=== PATIENT | male | born 2000 | race Two or more races ===

== ENCOUNTER → 2021-07-04 | Day surgery (SDC) | payer MEDICAID ==
[~2021-07-04] VITALS: Ht 172.7 cm; Wt 59.0 kg
[~2021-07-04] MED LIST: ACETAMINOPHEN 500MG TABLET ONE; ACETAMINOPHEN 650MG SUPP PR PRN; BUPIVACAINE HCL 0.5% (5MG/ML) 50ML ONE; CEFTRIAXONE 1 G PREMIX 50 ML IV ONE; DEXAMETHASONE 4MG/ML 1ML VIAL ONE; DEXT 5%/0.45% NACL 1000ML 1,000 ML IV SCH; GLYCOPYRROLATE 0.2 MG/ML 2ML VIAL ONE; HYDROMORPHONE HCL/PF 2MG/ML (OR) ONE; HYDROMORPHONE HCL/PF 2MG/ML CPJ IV PRN; IOHEXOL-300 100 ML BOTTLE ONE; IOHEXOL-350 100 ML BOTTLE ONE; KETOROLAC 30MG/ML VIAL ONE; LABETALOL 5MG/ML SYR 20 MG/4 ML SYRINGE IV PRN; MEPERIDINE HCL/PF 25MG/ML CPJ IV PRN; METRONIDAZOLE 500 MG PREMIX 100 ML IV ONE; MORPHINE SULFATE 2 MG/ML CPJ (NOT FOR IM USE) IV ONE; MORPHINE SULFATE 4 MG/ML CPJ (NOT FOR IM USE) IV ONE; NALOXONE HCL 0.4MG/ML VIAL IV PRN; NEOSTIGMINE METHYLSULFATE 1MG/ML 10 ML VIAL ONE; ONDANSETRON HCL 4MG/2ML INJ IV ONE; ONDANSETRON HCL 4MG/2ML INJ IV PRN; ONDANSETRON HCL 4MG/2ML INJ IV STA; PIPERACILLIN/TAZOBACTAM 3.375 G in DEXTROSE 5% WATER 50 ML IV SCH; POTASSIUM CHLORIDE 20MEQ TABLET SR PO ONE; PROPOFOL 200MG/20ML VIAL IV ONE; ROCURONIUM BROMIDE 10MG/ML VIAL 5ML IV ONE; SKIN ADHESIVE 0.7 GM EA TOP ONE; SODIUM CHLORIDE 0.9% 1,000 ML IV ONE
[2021-07-04 04:18] LABS: HEMATOCRIT. 45.2 % (42.0-52.0); HEMOGLOBIN. 15.8 g/dL (14.0-18.0); MEAN CORPUSCULAR HEMOGLOBIN 32.2 pg (28.0-32.0); MEAN CORPUSCULAR VOLUME 91.7 fL (80.0-94.0); PLATELET 210 x1000/uL (130-400); RED BLOOD CELL COUNT 4.92 mill/uL (4.7-6.1)
[2021-07-04 04:25] LABS: CHLORIDE 105 mEq/L (98-107)
[2021-07-04 04:29] LABS: ETHANOL BLOOD < 10 mg/dL
[2021-07-04 05:23] LABS: CLARITY URINE CLEAR (CLEAR); COLOR URINE YELLOW (YELLOW); KETONES URINE 2+ (NEGATIVE); LEUKOCYTE ESTERASE URINE 2+ (NEGATIVE); NITRITE URINE NEGATIVE (NEGATIVE); OCCULT BLOOD URINE NEGATIVE (NEGATIVE); PROTEIN URINE TRACE (NEGATIVE); SPECIFIC GRAVITY URINE 1.024 (1.005-1.030)
[2021-07-04 05:35] LABS: PLATELET ESTIMATE NORMAL
[2021-07-04 05:40] LABS: *BARBITURATES SCREEN URINE NEGATIVE (NEGATIVE)
[2021-07-04 05:41] LABS: *AMPHETAMINES SCREEN URINE NEGATIVE (NEGATIVE); *BENZODIAZEPINES SCREEN URINE NEGATIVE (NEGATIVE); METHADONE URINE SCREEN NEGATIVE (NEGATIVE)
[2021-07-04 05:42] LABS: *COCAINE SCREEN URINE NEGATIVE (NEGATIVE); CANNABINOID URINE SCREEN PRESUMTIVE POSITIVE (NEGATIVE); OPIATES URINE SCREEN PRESUMTIVE POSITIVE (NEGATIVE); PHENCYCLIDINE URINE SCREEN NEGATIVE (NEGATIVE)
[2021-07-04 10:15] VITALS: BP 108/58
== END | disposition home or self-care (01) ==
LOC: ER 02:32 → OR 10:29 → EDSTATUS 12:13 → CANBEDREQ 18:42
PROVIDERS: ATTEND Hospitalist
DX: K35.890 Other acute appendicitis without perforation or gangrene (principal); R11.2 Nausea with vomiting, unspecified; Z79.899 Other long term (current) drug therapy; Z98.890 Other specified postprocedural states; Z20.822 Contact with and (suspected) exposure to COVID-19
CPT/HCPCS: 36415; 44970; 74176; 74177; 80053; 80305; 80320; 81003; 83690; 85025; 86850; 86900; 86901; 87426; 88304; 99285; J0696; J1100; J1170; J1885; J2270; J2405; J2704; J2710; J3490; J7030; Q9967; G0480

== ENCOUNTER 2023-06-14 06:54 | Emergency (ER) | payer MEDICAID ==
[~2023-06-14] VITALS: Ht 172.7 cm; Wt 56.0 kg
[2023-06-14 07:09] VITALS: O2SAT 100
[2023-06-14] MEDS ORDERED: IBUPROFEN 400MG TABLET PO ONE (07:45)
[2023-06-14] MEDS ORDERED: TOPUD PO (08:12)
[2023-06-14 08:56] VITALS: BP 112/57; PULSE 60; RESP 20; TEMP 98.5
== END 2023-06-14 08:57 | disposition home or self-care (01) ==
LOC: ER 07:29
DX: M79.10 Myalgia, unspecified site (principal); L73.9 Follicular disorder, unspecified; F12.10 Cannabis abuse, uncomplicated
CPT/HCPCS: 73120; 99283

== ENCOUNTER 2023-07-26 13:27 | Emergency (ER) | payer MEDICAID ==
[~2023-07-26] VITALS: Ht 172.7 cm; Wt 57.0 kg
[~2023-07-26 13:27] MED LIST changes: -ACETAMINOPHEN 500MG TABLET ONE; -ACETAMINOPHEN 650MG SUPP PR PRN; -BUPIVACAINE HCL 0.5% (5MG/ML) 50ML ONE; -CEFTRIAXONE 1 G PREMIX 50 ML IV ONE; -DEXAMETHASONE 4MG/ML 1ML VIAL ONE; -DEXT 5%/0.45% NACL 1000ML 1,000 ML IV SCH; -GLYCOPYRROLATE 0.2 MG/ML 2ML VIAL ONE; -HYDROMORPHONE HCL/PF 2MG/ML (OR) ONE; -HYDROMORPHONE HCL/PF 2MG/ML CPJ IV PRN; -IOHEXOL-300 100 ML BOTTLE ONE; -IOHEXOL-350 100 ML BOTTLE ONE; -KETOROLAC 30MG/ML VIAL ONE; -LABETALOL 5MG/ML SYR 20 MG/4 ML SYRINGE IV PRN; -MEPERIDINE HCL/PF 25MG/ML CPJ IV PRN; -METRONIDAZOLE 500 MG PREMIX 100 ML IV ONE; -MORPHINE SULFATE 2 MG/ML CPJ (NOT FOR IM USE) IV ONE; -MORPHINE SULFATE 4 MG/ML CPJ (NOT FOR IM USE) IV ONE; -NALOXONE HCL 0.4MG/ML VIAL IV PRN; -NEOSTIGMINE METHYLSULFATE 1MG/ML 10 ML VIAL ONE; -ONDANSETRON HCL 4MG/2ML INJ IV ONE; -ONDANSETRON HCL 4MG/2ML INJ IV PRN; -ONDANSETRON HCL 4MG/2ML INJ IV STA; -PIPERACILLIN/TAZOBACTAM 3.375 G in DEXTROSE 5% WATER 50 ML IV SCH; -POTASSIUM CHLORIDE 20MEQ TABLET SR PO ONE; -PROPOFOL 200MG/20ML VIAL IV ONE; -ROCURONIUM BROMIDE 10MG/ML VIAL 5ML IV ONE; -SKIN ADHESIVE 0.7 GM EA TOP ONE; -SODIUM CHLORIDE 0.9% 1,000 ML IV ONE; +TOPUD PO
[2023-07-26 13:28] VITALS: BP 118/50; RESP 16; TEMP 98.8; O2SAT 99
[2023-07-26 13:29] VITALS: PULSE 107
[2023-07-26] MEDS ORDERED: IBUP-2029 MT (16:37)
[2023-07-26] MEDS ORDERED: CEPH500C2 MT (16:37)
== END 2023-07-26 16:49 | disposition home or self-care (01) ==
LOC: ER 13:27
DX: S62.502A Fracture of unspecified phalanx of left thumb, initial encounter for closed fracture (principal); F12.10 Cannabis abuse, uncomplicated; H60.12 Cellulitis of left external ear; Y04.0XXA Assault by unarmed brawl or fight, initial encounter; Y93.89 Activity, other specified; Y92.89 Other specified places as the place of occurrence of the external cause; Y99.8 Other external cause status
CPT/HCPCS: 29130; 73140; 99283

== ENCOUNTER 2023-10-06 18:07 | Emergency (ER) | payer MEDICAID ==
[~2023-10-06] VITALS: Ht 177.8 cm; Wt 79.0 kg
[~2023-10-06 18:07] MED LIST changes: +CEPH500C2 MT; +IBUP-2029 MT
[2023-10-06 18:10] VITALS: TEMP 98; O2SAT 100
[2023-10-06] MEDS ORDERED: FENTANYL CITRATE/PF 50MCG/ML 2ML VIAL IV ONE (18:45)
[2023-10-06] MEDS ORDERED: ONDANSETRON HCL 4MG/2ML INJ IV ONE (18:45)
[2023-10-06 18:49] VITALS: BP 171/99; PULSE 117; RESP 18
== END 2023-10-06 19:26 | disposition short-term general hospital (02) ==
LOC: ER 18:07
DX: S31.823A Puncture wound without foreign body of left buttock, initial encounter (principal); F12.10 Cannabis abuse, uncomplicated; W34.09XA Accidental discharge from other specified firearms, initial encounter; Y93.89 Activity, other specified; Y92.89 Other specified places as the place of occurrence of the external cause; Y99.8 Other external cause status
CPT/HCPCS: 96374; 96375; 99291; J3010; J2405; Z7610

== ENCOUNTER 2024-08-18 05:26 | Emergency (ER) | payer MEDICAID ==
[~2024-08-18] VITALS: Ht 172.7 cm; Wt 66.1 kg
[2024-08-18 05:34] VITALS: BP 109/58; TEMP 98.1; O2SAT 98
[2024-08-18 05:35] VITALS: PULSE 134; O2SAT 98
[2024-08-18] MEDS: TETANUS, DIPHTHERIA, PERTUSSIS VAC/PF 0.5ML (>10YR OLD) IM ONE (06:00)
[2024-08-18 06:30] VITALS: RESP 18
[2024-08-18] MEDS: LIDOCAINE HCL/EPINEPHRINE 1%-EPI 1:100,000 20ML VIAL INFIL ONE (06:30)
[2024-08-18] MEDS ORDERED: BO1 TP (06:52)
[2024-08-18] MEDS: BACITRACIN ZINC OINT UDPKT TOP ONE (07:00)
== END 2024-08-18 08:14 | disposition home or self-care (01) ==
LOC: ER 05:26
DX: S51.011A Laceration without foreign body of right elbow, initial encounter (principal); F12.90 Cannabis use, unspecified, uncomplicated; Z79.899 Other long term (current) drug therapy; X58.XXXA Exposure to other specified factors, initial encounter; Y93.89 Activity, other specified; Y92.89 Other specified places as the place of occurrence of the external cause; Y99.8 Other external cause status
CPT/HCPCS: 12004; 99282; J3490; Z7610 ×2

== ENCOUNTER 2024-09-06 12:42 | Emergency (ER) | payer MEDICAID ==
[~2024-09-06] VITALS: Ht 175.3 cm; Wt 56.0 kg
[~2024-09-06 12:42] MED LIST changes: +BO1 TP
[2024-09-06 12:54] VITALS: BP 100/51; PULSE 84; RESP 13; TEMP 98; O2SAT 98
== END 2024-09-06 14:01 | disposition home or self-care (01) ==
LOC: ER 12:42
DX: S41.111D Laceration without foreign body of right upper arm, subsequent encounter (principal); F12.90 Cannabis use, unspecified, uncomplicated; Z98.890 Other specified postprocedural states; X58.XXXD Exposure to other specified factors, subsequent encounter
CPT/HCPCS: 99281

== ENCOUNTER 2024-10-29 03:11 | Emergency (ER) | payer MEDICAID ==
[~2024-10-29] VITALS: Ht 177.8 cm; Wt 10.0 kg
[2024-10-29 03:39] VITALS: O2SAT 99
[2024-10-29 04:30] LABS: CLARITY URINE CLEAR (CLEAR); COLOR URINE YELLOW (YELLOW); GLUCOSE URINE NEGATIVE (NEGATIVE); KETONES URINE NEGATIVE (NEGATIVE); LEUKOCYTE ESTERASE URINE NEGATIVE (NEGATIVE); NITRITE URINE NEGATIVE (NEGATIVE); OCCULT BLOOD URINE NEGATIVE (NEGATIVE); PH URINE 6.5 (4.5-8.0); PROTEIN URINE NEGATIVE (NEGATIVE); SPECIFIC GRAVITY URINE 1.008 (1.005-1.030); UROBILINOGEN URINE 0.2 E.U./dL (0.2-1.0)
[2024-10-29 05:12] VITALS: BP 133/70; PULSE 89; RESP 18; TEMP 37.11408; O2SAT 98
== END 2024-10-29 05:11 | disposition home or self-care (01) ==
LOC: ER 03:11
DX: R33.9 Retention of urine, unspecified (principal); F12.90 Cannabis use, unspecified, uncomplicated
CPT/HCPCS: 81003; 99283

== ENCOUNTER 2024-11-30 01:15 | Emergency (ER) | payer MEDICAID ==
[~2024-11-30] VITALS: Ht 172.7 cm; Wt 61.3 kg
[2024-11-30 01:37] VITALS: BP 124/48; PULSE 89; RESP 16; TEMP 37.1; O2SAT 99
[2024-11-30] MEDS ORDERED: HYDR453.3 TP (02:50)
[2024-11-30] MEDS ORDERED: CLIN50GE6 TP (02:50)
== END 2024-11-30 03:32 | disposition home or self-care (01) ==
LOC: ER 01:15
DX: L70.9 Acne, unspecified (principal); L90.5 Scar conditions and fibrosis of skin; Z90.49 Acquired absence of other specified parts of digestive tract; F12.90 Cannabis use, unspecified, uncomplicated
CPT/HCPCS: 99283

== ENCOUNTER 2025-02-16 00:02 | Emergency (ER) | payer MEDICAID, OTHER ==
[~2025-02-16] VITALS: Ht 172.7 cm; Wt 62.0 kg
[~2025-02-16 00:02] MED LIST changes: +CLIN50GE6 TP; +HYDR453.3 TP
[2025-02-16 00:20] VITALS: O2SAT 100
[2025-02-16] MEDS ORDERED: HYDR-4233 TP (01:30)
[2025-02-16 02:04] VITALS: BP 128/62; PULSE 99; RESP 16; TEMP 36.6; O2SAT 100
== END 2025-02-16 01:51 | disposition home or self-care (01) ==
LOC: ER 00:02
DX: L25.9 Unspecified contact dermatitis, unspecified cause (principal); F12.90 Cannabis use, unspecified, uncomplicated; Z90.49 Acquired absence of other specified parts of digestive tract; Z79.899 Other long term (current) drug therapy
CPT/HCPCS: 99282

== ENCOUNTER 2025-07-22 00:50 | Emergency (ER) | payer MEDICAID, OTHER ==
[~2025-07-22] VITALS: Ht 172.7 cm; Wt 62.8 kg
[~2025-07-22 00:50] MED LIST changes: +HYDR-4233 TP; +IBUP-1455 MT; -IBUP-2029 MT
[2025-07-22 00:56] VITALS: O2SAT 100
[2025-07-22] MEDS ORDERED: CEPH500C2 MT (02:32)
[2025-07-22] MEDS: KETOROLAC 15MG/ML VIAL IM ONE (02:47)
[2025-07-22] MEDS: KETOROLAC 15MG/ML VIAL IM NR (02:48)
[2025-07-22 02:56] VITALS: BP 104/54; PULSE 53; RESP 14; TEMP 36.9; O2SAT 100
== END 2025-07-22 02:57 | disposition home or self-care (01) ==
LOC: ER 01:13
DX: Z48.00 Encounter for change or removal of nonsurgical wound dressing (principal); F12.90 Cannabis use, unspecified, uncomplicated; Z90.49 Acquired absence of other specified parts of digestive tract; Z79.899 Other long term (current) drug therapy
CPT/HCPCS: 99283; 96372; J1885